=== PATIENT | male | born 1965 | race Caucasian/White ===

== ENCOUNTER 2019-05-31 06:07 | Inpatient (IN) ==
--- NOTE | 2019-05-14 10:38 | PAT Medication Instructions ---
Medication Instructions Date of Service May 14, 2019 Home Medications amlodipine [Norvasc] 5 mg PO HS cholecalciferol (vitamin D3) [Vitamin D3] 2,000 unit PO HS gabapentin [Neurontin] 600 mg PO HS insulin aspart U-100 [Novolog Flexpen U-100 Insulin] 1 unit SUBCUT AC insulin glargine [Lantus Solostar U-100 Insulin] 28 unit SUBCUT BID liraglutide [Victoza 2-Gurvinder] 1.8 mg SUBCUT QAM magnesium oxide 400 mg PO HS metformin 1,000 mg PO QAM metoprolol succinate 50 mg PO HS potassium gluconate 595 mg PO PM rosuvastatin [Crestor] 20 mg PO HS valsartan [Diovan] 80 mg PO HS DO NOT take the morning of surgery insulin aspart U-100 [Novolog Flexpen U-100 Insulin] 1 unit SUBCUT AC metformin 1,000 mg PO QAM Take morning of surgery With a small sip of water, OTHERWISE NOTHING TO EAT OR DRINK AFTER MIDNIGHT: liraglutide [Victoza 2-Gurvinder] 1.8 mg SUBCUT QAM Take evening before surgery amlodipine [Norvasc] 5 mg PO HS cholecalciferol (vitamin D3) [Vitamin D3] 2,000 unit PO HS gabapentin [Neurontin] 600 mg PO HS insulin aspart U-100 [Novolog Flexpen U-100 Insulin] 1 unit SUBCUT AC insulin glargine [Lantus Solostar U-100 Insulin] 28 unit SUBCUT BID magnesium oxide 400 mg PO HS metoprolol succinate 50 mg PO HS potassium gluconate 595 mg PO PM rosuvastatin [Crestor] 20 mg PO HS valsartan [Diovan] 80 mg PO HS Insulin Dependent Diabetic Patients * Test your blood sugar the morning of surgery * If Blood Sugar is GREATER THAN 150, take HALF of your regular dose of: insulin glargine [Lantus Solostar U-100 Insulin] 14 units * If Blood Sugar is LESS THAN 150, DO NOT TAKE ANY: insulin glargine [Lantus Solostar U-100 Insulin] * Other Notes If you have any questions please call us at [phone] or [phone] or [phone] or [phone]
--- NOTE | 2019-05-17 09:10 | Anesthesiology Consultation ---
Date of Service May 17, 2019 Assessment & Plan (1) Encounter for pre-operative examination: - PCP: 05/10/19: "He is cleared medically for surgery" - Check BSG AM DOS Chart Review Chart Review: Pending: Refer to Additional Notes / Consult section (pending preop testing (labs, CXR)) and Patient seen in Pre Admission Testing Teaching & Discussion Pre-Anesthesia Teaching/Discussion Notes: Instructed NPO after midnight before surgery,except medications with 15 cc of water. Medication instructions provided according to the PAT guidelines. History Surgery Operation Date: 05/31/19 10:25 Proposed Procedures p L2-L5 Decompression and Fusion with Spinal Cord Monitoring - Andrew Mariano DO Height/Weight Height: 6 ft Weight: 133.6 kg Allergies Allergy/AdvReac Type Severity Reaction Status Date / Time lisinopril AdvReac Mild Cough Verified 05/13/19 15:04 Medications Home Medications Medication Instructions Recorded Confirmed Last Taken amlodipine [Norvasc] 5 mg PO HS 05/13/19 05/13/19 Unknown cholecalciferol (vitamin D3) 2,000 unit PO HS 05/13/19 05/13/19 Unknown [Vitamin D3] gabapentin [Neurontin] 600 mg PO HS 05/13/19 05/13/19 Unknown insulin aspart U-100 [Novolog 1 unit SUBCUT AC 05/13/19 05/13/19 Unknown Flexpen U-100 Insulin] insulin glargine [Lantus Solostar 28 unit SUBCUT BID 05/13/19 05/13/19 Unknown U-100 Insulin] liraglutide [Victoza 2-Gurvinder] 1.8 mg SUBCUT QAM 05/13/19 05/13/19 Unknown magnesium oxide 400 mg PO HS 05/13/19 05/13/19 Unknown metformin 1,000 mg PO QAM 05/13/19 05/13/19 Unknown metoprolol succinate 50 mg PO HS 05/13/19 05/13/19 Unknown potassium gluconate 595 mg PO PM 05/13/19 05/13/19 Unknown rosuvastatin [Crestor] 20 mg PO HS 05/13/19 05/13/19 Unknown valsartan [Diovan] 80 mg PO HS 05/13/19 05/13/19 Unknown Past Medical History Medical History Chronic back pain Diabetes mellitus, type 2 IDDM Hyperlipidemia Hypertension Obesity Osteoarthritis Sleep apnea BIPAP Exercise / Class Metabolic Activity III < 4 Walking/Shop/Light housework Past Surgical History Surgical History History of arthroscopy of both shoulders Hx of arthroscopy of right knee Hx of colonoscopy Hx of wisdom tooth extraction Past Anesthesia History No Hx of Anesthesia Complications and No Family Hx of Anesthesia Complications History of PONV No Hx of PONV and No Hx of Motion Sickness Social History Smoking Status: Never smoker Do You Dip or Chew Tobacco: Yes (1 CAN/DAY- ADVISED NPO ) Hx Alcohol Use: Yes Alcohol type: beer alcohol intake frequency: a few times a month Hx Substance Use: No substance use type: does not use Review of Systems Patient denies chest pain, shortness of breath, cough, wheezing, palpitations. Physical Exam Vital Signs VITALS BP 113/71 P 69 TEMP 98.0 SP02 95%RA RESP 16 PHYSICAL Full neck and c-spine range of motion. Full TMJ range of motion. TMD 4 finger breaths Mallampati Score 3 Dentition: missing side Lungs: clear throughout to auscultation Cardiac: regular rate and rhythm, no murmurs noted Spine: normal Carotid arteries: negative bruit Extremities: no edema Trimmed simons Testing Electrocardiogram Date: 05/10/19 SR at 76bpm. First degree AVB.
--- NOTE | 2019-05-17 10:07 | XRay Report ---
XR chest Pre-admission PA/Lat HISTORY: 53 years-old Male pat preoperative exam. No acute chest complaints COMPARISON: None available TECHNIQUE: PA and lateral views of the chest FINDINGS: Cardiomediastinal and hilar silhouettes are within normal limits. No pneumothorax, pleural effusion, focal airspace consolidation or overt pulmonary edema. Degenerative changes of the shoulders and spin e. IMPRESSION: No acute process. The above report was generated using voice recognition software. It may contain grammatical, syntax o r spelling errors. Electronically signed by: Domo Dumont M.D. 05/17/2019 10:06 AM
[2019-05-17 11:17] LABS: Appearance Urine Clear (Clear); Bilirubin Urine Negative (Negative); Blood Urine Negative (Negative); Color Urine Yellow; Glucose Urine UA 3+ (Negative); Ketones Urine Trace (Negative); Leukocyte Esterase Urine Negative (Negative); Nitrite Urine Negative (Negative); Protein Urine Negative (Negative); Specific Gravity Urine 1.026 (1.000-1.030); Urobilinogen Urine Negative (Negative); pH Urine 5.5 (4.5-7.5)
[2019-05-17 11:19] LABS: Basophils # (auto) 0.03 K/uL (0-0.2); Basophils % (auto) 0.4 %; Eosinophils # (auto) 0.17 K/uL (0-0.5); Eosinophils % (auto) 2.5 %; Hematocrit (blood only) 45.2 % (42-52); Hemoglobin 15.8 g/dL (14.0-18.0); Immature Granulocytes # (auto) 0.01 K/uL (0.00-0.02); Immature Granulocytes % (auto) 0.1 %; Lymphocytes # (auto) 2.36 K/uL (1.2-3.4); Lymphocytes % (auto) 34.1 %; Mean Corpuscular Hemoglobin 31.3 pg (25-34); Mean Corpuscular Volume 89.5 fL (80-100); Monocytes # (auto) 0.55 K/uL (0.11-0.59); Monocytes % (auto) 7.9 %; Platelet Count 158 K/uL (130-400); RDW Coefficient of Variation 12.5 % (11.5-14.5); RDW Standard Deviation 40.4 fL (36.4-46.3); Red Blood Count 5.05 M/uL (4.7-6.1); White Blood Count 6.92 K/uL (4.8-10.8)
[2019-05-17 11:28] LABS: Calcium 8.6 mg/dl (8.5-10.1); Creatinine Clr Calc Pharmacy 124.6 ml/min; Est GFR (African American) 102.9; Est GFR (Non-African American) 88.8; Potassium 4.4 mmol/L (3.5-5.1)
[2019-05-17 11:34] LABS: Partial Thromboplastin Ratio 0.9; Partial Thromboplastin Time 25.6 Seconds (21.0-31.0); Prothrombin Time 10.5 Seconds (9.0-12.0)
[2019-05-17 11:38] LABS: Estimated Average Glucose 197 mg/dl; Hemoglobin A1C 8.5 % (4.5-5.6)
[~2019-05-31 06:07] MED LIST: ACETAMINOPHEN 500 MG TAB PO SCH; CEFAZOLIN 3000MG 72.5 ML IV SCH; CeleBREX 200 MG CAP PO SCH; GABAPENTIN 900 MG DOSE PO SCH; LR 15ML/HR IV SCH
[2019-05-31] MEDS ORDERED: ePHEDrine sulfate 50 MG/ML AMP IV PRN (06:45)
[2019-05-31] MEDS ORDERED: ATROPINE SULFATE 0.1 MG/ML 10ML SYR IV PRN (06:45)
[2019-05-31] MEDS ORDERED: ONDANSETRON INJ 2 MG/ML 2 ML VIAL IV PRN ×2 (06:45→12:10)
[2019-05-31] MEDS ORDERED: MoRPHine SULFATE 10 MG/ML CARP/VIAL IV PRN (06:45)
[2019-05-31] MEDS ORDERED: fentaNYL citrate 100 MCG/2 ML VIAL IV PRN (06:45)
[2019-05-31] MEDS ORDERED: BUPIVACAINE/EPINEPHRINE 0.25% 1:200,000 30 ML VIAL ONE (07:07)
[2019-05-31] MEDS ORDERED: BACITRACIN INJ 50,000 UNIT VIAL ONE (07:07)
[2019-05-31] MEDS ORDERED: PROPOFOL IV EMULSION 10 MG/ML 20 ML VIAL IV ONE (07:18)
[2019-05-31] MEDS ORDERED: LIDOCAINE HCL 2% 2 ML VIAL/AMP(20MG/ML) INFIL ONE (07:18)
[2019-05-31] MEDS ORDERED: DEXAMETHASONE SOD INJ 4 MG/ML VIAL ONE (07:18)
[2019-05-31] MEDS ORDERED: GLYCOPYRROLATE 0.2 MG/ML VIAL ONE (07:18)
[2019-05-31] MEDS ORDERED: NEOSTIGMINE METHYLSULFATE 1 MG/ML 10ML VIAL ONE (07:18)
[2019-05-31] MEDS ORDERED: ONDANSETRON INJ 2 MG/ML 2 ML VIAL ONE (07:18)
[2019-05-31] MEDS ORDERED: MIDAZOLAM HCL 1 MG/ML 2ML VIAL ONE (07:19)
[2019-05-31] MEDS ORDERED: HYDROmorphone INJ 2 MG/ML SYR/VIAL ONE (07:19)
[2019-05-31] MEDS ORDERED: fentaNYL citrate 100 MCG/2 ML VIAL ONE (07:19)
--- NOTE | 2019-05-31 07:30 | History & Physical Bridge Note ---
Date of Service May 31, 2019 History & Physical Bridge Note I have examined the patient, reviewed the History & Physical and in the interval since the performance of the History & Physical I have noted the following changes of clinical significance: no changes noted
--- NOTE | 2019-05-31 07:31 | History & Physical Report ---
Date of Service May 31, 2019 Assessment & Plan (1) Neurogenic claudication due to lumbar spinal stenosis: Decompression fusion L2-L5 Present on Admission?: Yes History of Present Illness Chief Complaint: Back and leg pain Primary Care Provider: Ash Perez This is a 53-year-old male presents with chronic persistent back and leg pain after failing extensive course of nonoperative care is here for surgical intervention. Allergies Allergy/AdvReac Type Severity Reaction Status Date / Time lisinopril AdvReac Mild Cough Verified 05/31/19 06:29 Home Medications Home Medications Medication Instructions Recorded Confirmed Type amlodipine [Norvasc] 5 mg PO HS 05/13/19 05/31/19 History cholecalciferol (vitamin D3) 2,000 unit PO HS 05/13/19 05/31/19 History [Vitamin D3] gabapentin [Neurontin] 600 mg PO HS 05/13/19 05/31/19 History insulin aspart U-100 [Novolog 1 unit SUBCUT AC 05/13/19 05/31/19 History Flexpen U-100 Insulin] insulin glargine [Lantus Solostar 28 unit SUBCUT BID 05/13/19 05/31/19 History U-100 Insulin] liraglutide [Victoza 2-Gurvinder] 1.8 mg SUBCUT QAM 05/13/19 05/31/19 History magnesium oxide 400 mg PO HS 05/13/19 05/31/19 History metformin 1,000 mg PO HS 05/13/19 05/31/19 History metoprolol succinate 50 mg PO HS 05/13/19 05/31/19 History potassium gluconate 595 mg PO PM 05/13/19 05/31/19 History rosuvastatin [Crestor] 20 mg PO HS 05/13/19 05/31/19 History valsartan [Diovan] 80 mg PO HS 05/13/19 05/31/19 History Past Med/Surg History Medical History Chronic back pain Diabetes mellitus, type 2 IDDM Hyperlipidemia Hypertension Obesity Osteoarthritis Sleep apnea BIPAP Surgical History History of arthroscopy of both shoulders Hx of arthroscopy of right knee Hx of colonoscopy Hx of wisdom tooth extraction Social History Preferred Language: Martiniquais Communication Ability: Effective Billet Recorder Required: No Beliefs That Will Affect Care: None Current Living Situation: Spouse Other Information That Helps Us Care for You: No Feels Safe at Home: Yes Safety Concerns: Feels Safe At This Time Smoking Status: Never smoker Do You Dip or Chew Tobacco: Yes (1 CAN/DAY- ADVISED NPO ) ; Second Hand Exposure: No ; Tobacco Cessation Education Requested by Patient: No Hx Alcohol Use: Yes Alcohol type: beer Hx Substance Use: No Physical Exam Physical Exam: Patient is alert and oriented neurologically intact. Results & Data Vital Signs (Past 12 Hours) Vital Signs Temp Pulse Resp BP Pulse Ox 05/31/19 06:38 36.6 C 59 L 20 107/71 95
[2019-05-31] MEDS ORDERED: ROCURONIUM BROMIDE 10 MG/ML 5 ML VIAL ONE (08:22)
[2019-05-31] MEDS ORDERED: SUCCINYLCHOLINE CHLORIDE 20 MG/ML 10 ML VIAL ONE (08:22)
[2019-05-31] MEDS ORDERED: THROMBIN FOR SOLN 20000 UNIT KIT ONE (08:37)
[2019-05-31] MEDS ORDERED: FLOSEAL HEMOSTATIC MATRIX 10ML TOP ONE (10:35)
--- NOTE | 2019-05-31 10:47 | Operative Report ---
Post Operative Report Pre & Post Diagnosis Operation Date: 05/31/19 07:45 Pre-Op Diagnosis: LUMBAR SPINAL STENOSIS W/NEUROGENIC CLAUDICATION Post-Op Diagnosis: LUMBAR SPINAL STENOSIS W/NEUROGENIC CLAUDICATION I identified the patient and participated in the time-out.: Yes Procedure Operation Date: 05/31/19 07:45 Actual Procedures #1 lumbar decompression with bilateral medial facetectomies foraminotomies L2-3 L3-4 L4-5. #2 posterior spinal fusion L2-3 L3-4 L4-5.. #3 placement posterior segmental instrumentation L2-3 L3-4 L4-5.. #4 interbody fusion L3-4 L4-5.. #5 placement titanium interbody cage 10 x 26 mm at L3-4 and 11 x 26 mm at L4-5. #6 placement of locally harvested morselized autograft in the posterior lateral gutters. #7 placement infuse collagen sponge combined master graft in the posterior lateral gutters and ostial amp and interbody space. Surgeon Andrew Mariano, DO Cardiac Cath Lab Technologist Georgette Iniguez Estimated Blood Loss 600 Findings See Below The patient is 6 feet tall weighing over 133 kg with a BMI of 39. The patient's body habitus combined with an EBL of over 600 cc created significant technical difficulty. He did require our deepest retractors and longus instruments in order to perform his procedure. This added at least 50% increase in operative time. Specimens None Indications This is a 53-year-old male who presents with above-mentioned diagnosis after failing extensive course of nonoperative care elected to undergo the above- mentioned procedure. Description of Procedure Patient was met with identified and informed consent obtained. Patient was then taken to the operative suite underwent intubation placed in the prone position the Chucho table on top of the Angel frame. All bony prominences well-padded eyes inspected to ensure no external pressure placed upon the peer at this point the lumbar spine was prepped and draped in normal sterile fashion. Sharp dissection with the assistance of Bovie cautery was performed down to and exposing the lamina and transverse processes of L3-L4-L5 bilaterally. From a caudal cephalad fashion complete laminectomy of L for L3 and L2 was performed including bilateral medial facetectomies foraminotomies addressing severe stenosis. Pedicle screws were then placed in L2 L3-L4-L5 bilateral with assistance of fluoroscopy and the probably size gricelda placed. By way of a transforaminal approach on the left complete discectomy fill for 5 was performed endplates curetted to subcortical bleeding bone and a 11 x 26 mm titanium cage filled with ostium bone graft tapped in position. Then proceeded to L3-[address] of a transforaminal approach and left complete discectomy performed endplates curetted to subcortical being bone and a 10 x 26 mm titanium cage filled with ostium bone graft tapped in position. The rods were then locked in final position bilaterally. The transverse processes of L2 L3-L4-L5 bur to subcortical bleeding bone. Infuse collagen sponge master graft and local autograft was placed in the posterior lateral gutters. 15 round ELIAS drain ins erted. Incision was then closed with 1 Vicryl in the fascia 2-0 Vicryl subcutaneous and 4 Monocryl for final skin closure. Steri-Strip sterile dressing was placed. Patient awakened taken to PACU stable condition. Please note Georgette Iniguez present at the entire procedure involved in patient positioning complex portions of the surgery and final skin closure. Lastly spinal cord monitoring was utilized that the procedure no changes noted. I attest to the content of the Intraoperative Record and any orders documented therein. Any exceptions are noted below.
--- NOTE | 2019-05-31 11:26 | Fluoroscopy Report ---
FL lumbar spine 2-3V HISTORY: 53 years-old Male L2-3 DECOMPRESSION AND FUSION chronic low back pain COMPARISON: None available TECHNIQUE: 2 spot fluoroscopic images of the lumbar spine were obtained utilizing 31.7 seconds fluoro scopy time FINDINGS: Posterior interbody gricelda and screw fusion hardware at what appears to be the L2-L5 levels with discect jessie changes at L3-L4 and L4-L5. Exact numbering is not definitive based on magnification of the image s. Multilevel spondylitic spurring. Alignment appears satisfactory. The hardware appears intact. No a cute fracture identified. IMPRESSION: Fluoroscopic assistance as above. Please see operative report for further details. The above report was generated using voice recognition software. It may contain grammatical, syntax o r spelling errors. Electronically signed by: Domo Dumont M.D. 05/31/2019 11:25 AM
--- NOTE | 2019-05-31 11:52 | Anesthesiology Progress Note ---
Date of Service May 31, 2019 Anesthesia Post Procedure Vital Signs Vital Signs: Temp Pulse Pulse Resp BP Pulse Ox 05/31/19 11:40 98.8 F 72 14 114/69 100 05/31/19 11:30 62 14 109/59 L 100 05/31/19 11:20 70 16 114/78 97 05/31/19 11:10 70 16 118/68 97 05/31/19 11:00 98.1 F 76 16 117/78 98 05/31/19 06:38 97.9 F 59 L 20 107/71 95 Pain Intensity Left Foot: Pain Intensity: 3 Transfer of Care Handoff Completed per policy Notes Mental Status: alert / awake / arousable and participated in evaluation Patient Amnestic to Procedure: Yes Nausea / Vomiting: adequately controlled Pain: adequately controlled Airway Patency, RR, SpO2: stable & adequate BP & HR: stable & adequate Hydration State: stable & adequate Anesthetic Complications: no major complications apparent and Pt Satisfied with anesthetic care
[2019-05-31] MEDS ORDERED: ACETAMINOPHEN 1,000 MG/100 ML VIAL IV PRN (12:10)
[2019-05-31] MEDS ORDERED: ACETAMINOPHEN 500 MG TAB PO PRN (12:10)
[2019-05-31] MEDS ORDERED: HYDROmorphone INJ 1 MG/ML SYRINGE IV PRN (12:10)
[2019-05-31] MEDS ORDERED: METOCLOPRAMIDE HCL INJ 5 MG/ML 2 ML VIAL IV PRN (12:10)
[2019-05-31] MEDS ORDERED: LORazepam 0.5 MG/1 ML VIAL IV PRN (12:10)
[2019-05-31] MEDS ORDERED: SOD PHOSPHATE/SOD BIPHOSPHATE ENEMA 132 ML BTL PR PRN (12:10)
[2019-05-31] MEDS ORDERED: DO NOT ADMINISTER PNEUMOCOCCAL VACCINE PRN (12:10)
[2019-05-31] MEDS ORDERED: LORazepam 0.5 MG TAB PO PRN (12:10)
[2019-05-31] MEDS ORDERED: TRAMADOL HCL 50 MG TABLET PO PRN (12:10)
[2019-05-31] MEDS ORDERED: ONDANSETRON 4 MG OD TAB PO PRN (12:10)
[2019-05-31] MEDS ORDERED: HYDROmorphone INJ 0.5 MG/0.5 ML SYR IV PRN (12:10)
[2019-05-31] MEDS ORDERED: DO NOT ADMINISTER FLU VACCINE PRN (12:10)
[2019-05-31] MEDS ORDERED: bisacodyL 10 MG SUPP PR PRN (12:10)
[2019-05-31] MEDS ORDERED: PROMETHAZINE HCL 12.5 MG in SODIUM CHLORIDE 0.9% 50 ML IV PRN (12:10)
[2019-05-31] MEDS ORDERED: MAGNESIUM HYDROXIDE SUSP 30 ML UDC PO PRN (12:10)
[2019-05-31] MEDS ORDERED: ALUMINUM/MAGNESIUM SUSP 30 ML UDC PO PRN (12:10)
[2019-05-31] MEDS ORDERED: FAMOTIDINE 20 MG TAB PO PRN (12:10)
[2019-05-31] MEDS ORDERED: NALOXONE HCL 0.4 MG/1 ML VIAL/CARP IV PRN (12:10)
[2019-05-31] MEDS: SODIUM CHLORIDE 0.9% 1000ML 1,000 ML IV SCH ×2 (12:30→19:09)
[2019-05-31] MEDS ORDERED: GLUCAGON FOR INJ 1 MG VIAL SQ PRN (12:57)
[2019-05-31] MEDS ORDERED: DEXTROSE 50% 50 ML SYRINGE IV PRN (12:57)
[2019-05-31] MEDS ORDERED: GLUCOSE 10 TABS/TUBE PO PRN (12:57)
[2019-05-31] MEDS ORDERED: CARBOHYDRATES FOR HYPOGLYCEMIA PO PRN (12:57)
[2019-05-31] MEDS ORDERED: GLUCOSE 40% GEL 15 GM TUBE PO PRN (12:57)
--- NOTE | 2019-05-31 13:03 | Hospitalist Consultation ---
Date of Consultation May 31, 2019 Assessment & Plan (1) Neurogenic claudication due to lumbar spinal stenosis: s/p L2-L5 decompression/fusion with Dr. Mariano on 05/31 As per ortho Pre-op Hb 15.8 (2) Hypokalemia: continue home meds (3) Diabetes mellitus, type 2: continue home meds SSI A1c 8.5 (4) Hyperlipidemia: continue home meds (5) Hypertension: continue home meds (6) Sleep apnea: Home CPAP (7) DVT prophylaxis: As per ortho History of Present Illness Attending Physician: Andrew Mariano DO History of Present Illness 53 y/o M who was admitted on 05/31 s/p L2-[address] Mariano. Pt is doing well post-op. Tolerating water without issue, but is awaiting first post-op meal. Pt denies fever, SOB, chest pain, abd pain, n/v/c/d, LE pain or swelling. Allergies Allergy/AdvReac Type Severity Reaction Status Date / Time lisinopril AdvReac Mild Cough Verified 05/31/19 06:29 Home Medications Home Medications Medication Instructions Recorded Confirmed Type amlodipine [Norvasc] 5 mg PO HS 05/13/19 05/31/19 History cholecalciferol (vitamin D3) 2,000 unit PO HS 05/13/19 05/31/19 History [Vitamin D3] gabapentin [Neurontin] 600 mg PO HS 05/13/19 05/31/19 History insulin aspart U-100 [Novolog 1 unit SUBCUT AC 05/13/19 05/31/19 History Flexpen U-100 Insulin] insulin glargine [Lantus Solostar 28 unit SUBCUT BID 05/13/19 05/31/19 History U-100 Insulin] liraglutide [Victoza 2-Gurvinder] 1.8 mg SUBCUT QAM 05/13/19 05/31/19 History magnesium oxide 400 mg PO HS 05/13/19 05/31/19 History metformin 1,000 mg PO HS 05/13/19 05/31/19 History metoprolol succinate 50 mg PO HS 05/13/19 05/31/19 History potassium gluconate 595 mg PO PM 05/13/19 05/31/19 History rosuvastatin [Crestor] 20 mg PO HS 05/13/19 05/31/19 History valsartan [Diovan] 80 mg PO HS 05/13/19 05/31/19 History Patient History Medical History Chronic back pain Diabetes mellitus, type 2 IDDM Hyperlipidemia Hypertension Obesity Osteoarthritis Sleep apnea BIPAP Surgical History History of arthroscopy of both shoulders Hx of arthroscopy of right knee Hx of colonoscopy Hx of wisdom tooth extraction Social History (Updated 05/31/19 @ 13:01 by Clair Soto DO) Preferred Language: Czech Communication Ability: Effective I&C Tech Required: No Beliefs That Will Affect Care: None Current Living Situation: Spouse Other Information That Helps Us Care for You: No Feels Safe at Home: Yes Safety Concerns: Feels Safe At This Time Smoking Status: Never smoker Do You Dip or Chew Tobacco: Yes (1 CAN/DAY- ADVISED NPO ) ; Second Hand Exposure: No ; Tobacco Cessation Education Requested by Patient: No Hx Alcohol Use: Yes Alcohol type: beer Alcohol Intake Frequency Comment: once a month Hx Substance Use: No Review of Systems Review of Systems: Pertinent positives and negatives reviewed in HPI--all others negative Physical Exam Constitutional: WD/WN, vitals as above Eyes: normal visual alegre by confrontation and + anicteric sclerae Neck: normal visual inspection and trachea midline Respiratory: normal respiratory effort, lungs clear to auscultation Cardiovascular: Rate/Rhythm: regular rate and regular rhythm Gastrointestinal (Abdomen): Inspection/Auscultation: abdomen not distended Percussion/Palpation: abdomen soft; abdomen nontender Musculoskeletal: Head/Neck/Chest: normocephalic and head atraumatic negative for edema, peripheral pulses intact Skin: no rashes, warm and dry Neurologic: awake; not confused Speech / Cognition: normal speech Psychiatric: A+Ox3, euthymic affect Results & Data Vital Signs (Past 12 Hours) Vital Signs Temp Pulse Pulse Resp BP Pulse Ox 05/31/19 12:40 68 18 112/69 92 05/31/19 12:10 36.7 C 74 16 108/69 99 05/31/19 11:40 37.1 C 72 14 114/69 100 05/31/19 11:30 62 14 109/59 L 100 05/31/19 11:20 70 16 114/78 97 05/31/19 11:10 70 16 118/68 97 05/31/19 11:00 36.7 C 76 16 117/78 98 05/31/19 06:38 36.6 C 59 L 20 107/71 95 Diagnostic Findings CXR: neg for acute PG Care Time/CCT Total # of Minutes Spent Total Time Spent with Patient: Total time spent is greater than 50% in coordination of care (as documented) at patient's floor/unit and/or counseling patient:
[2019-05-31] MEDS ORDERED: INSULIN ASPART 100 UNITS/ML 3 ML PEN SC ONE (13:30)
[2019-05-31] MEDS: KETOROLAC 30 MG/ML VIAL IV SCH ×2 (13:49→20:34)
[2019-05-31] MEDS: VICTOZA - ORDER AWAITING ACTION SCH (17:15)
[2019-05-31] MEDS: CEFAZOLIN 2000MG 2,000 MG/15 ML SYR IV SCH (17:15)
[2019-05-31] MEDS: INSULIN ASPART 100 UNITS/ML 3 ML PEN SC SCH ×2 (17:38→21:22)
[2019-05-31] MEDS: AMLODIPINE BESYLATE 5 MG TAB PO SCH (20:34)
[2019-05-31] MEDS: GABAPENTIN 600 MG TAB PO SCH (20:34)
[2019-05-31] MEDS: ROSUVASTATIN CALCIUM 20 MG TAB PO SCH (20:34)
[2019-05-31] MEDS: MAGNESIUM OXIDE 400 MG TAB PO SCH (20:34)
[2019-05-31] MEDS: VALSARTAN 80 MG TAB PO SCH (20:34)
[2019-05-31] MEDS: METOPROLOL SUCC 50MG EXT REL TAB PO SCH (20:35)
[2019-05-31] MEDS: CHOLECALCIFEROL 1,000 UNITS 25 MCG TAB PO SCH (20:35)
[2019-05-31] MEDS: DOCUSATE SODIUM/SENNA 50/8.6MG TAB PO SCH (20:37)
[2019-05-31] MEDS ORDERED: NON-FORMULARY MEDICATION (Potassium Gluconate 595 MG) PO SCH (21:00)
[2019-05-31] MEDS: INSULIN GLARGINE SOLOSTAR 100 UNITS/ML 3 ML PEN SC SCH (21:22)
[2019-06-01] MEDS: CEFAZOLIN 2000MG 2,000 MG/15 ML SYR IV SCH (00:18)
[2019-06-01] MEDS: VICTOZA - ORDER AWAITING ACTION SCH ×2 (00:18→08:40)
[2019-06-01] MEDS: INSULIN ASPART 100 UNITS/ML 3 ML PEN SC SCH ×6 (00:33→21:36)
[2019-06-01] MEDS: SODIUM CHLORIDE 0.9% 1000ML 1,000 ML IV SCH (01:05)
[2019-06-01] MEDS: KETOROLAC 30 MG/ML VIAL IV SCH ×2 (01:05→07:18)
[2019-06-01] MEDS: POLYETHYLENE (MIRALAX) 17 GM PACK PO SCH ×3 (05:42→17:44)
[2019-06-01 06:16] LABS: Basophils # (auto) 0.01 K/uL (0-0.2); Basophils % (auto) 0.1 %; Eosinophils # (auto) 0.03 K/uL (0-0.5); Eosinophils % (auto) 0.3 %; Hematocrit (blood only) 32.1 % (42-52); Hemoglobin 11.2 g/dL (14.0-18.0); Immature Granulocytes # (auto) 0.01 K/uL (0.00-0.02); Immature Granulocytes % (auto) 0.1 %; Lymphocytes # (auto) 1.85 K/uL (1.2-3.4); Lymphocytes % (auto) 15.7 %; Mean Corpuscular Hemoglobin 31.3 pg (25-34); Mean Corpuscular Hgb Conc 34.9 g/dL (32-36); Mean Corpuscular Volume 89.7 fL (80-100); Mean Platelet Volume 9.3 fL (7.4-10.4); Monocytes % (auto) 10.2 %; Neutrophils # (auto) 8.67 K/uL (1.4-6.5); Neutrophils % (auto) 73.6 %; Platelet Count 126 K/uL (130-400); RDW Coefficient of Variation 12.3 % (11.5-14.5); RDW Standard Deviation 40.4 fL (36.4-46.3); Red Blood Count 3.58 M/uL (4.7-6.1); White Blood Count 11.77 K/uL (4.8-10.8)
[2019-06-01 06:53] LABS: Creatinine Clr Calc Pharmacy 125.6 ml/min; Est GFR (African American) 105.5
--- NOTE | 2019-06-01 08:16 | Anesthesiology Progress Note ---
Date of Service June 01, 2019 Anesthesia Post Procedure Vital Signs Vital Signs: Temp Pulse Pulse Pulse Resp BP BP 06/01/19 06:54 36.8 C 65 18 100/59 L 06/01/19 03:57 36.4 C L 79 18 105/62 05/31/19 23:34 36.7 C 68 17 100/57 L 05/31/19 20:33 80 110/69 05/31/19 19:01 37 C 65 16 113/69 05/31/19 15:11 36.5 C 69 16 121/69 05/31/19 14:06 79 18 122/70 05/31/19 13:06 36.4 C L 73 20 112/73 05/31/19 12:40 68 18 112/69 05/31/19 12:10 36.7 C 74 16 108/69 05/31/19 11:40 37.1 C 72 14 114/69 05/31/19 11:30 62 14 109/59 L 05/31/19 11:20 70 16 114/78 05/31/19 11:10 70 16 118/68 05/31/19 11:00 36.7 C 76 16 117/78 Pulse Ox 06/01/19 06:54 96 06/01/19 03:57 96 05/31/19 23:34 90 05/31/19 20:33 05/31/19 19:01 93 05/31/19 15:11 94 05/31/19 14:06 96 05/31/19 13:06 96 05/31/19 12:40 92 05/31/19 12:10 99 05/31/19 11:40 100 05/31/19 11:30 100 05/31/19 11:20 97 05/31/19 11:10 97 05/31/19 11:00 98 Pain Intensity Left Foot: Pain Intensity: 3 Notes Mental Status: alert / awake / arousable and participated in evaluation Nausea / Vomiting: adequately controlled Pain: adequately controlled Airway Patency, RR, SpO2: stable & adequate BP & HR: stable & adequate Hydration State: stable & adequate Anesthetic Complications: no major complications apparent
[2019-06-01] MEDS: VICTOZA 18 MG/3 ML SC SCH (08:43)
[2019-06-01] MEDS: INSULIN GLARGINE SOLOSTAR 100 UNITS/ML 3 ML PEN SC SCH ×2 (08:46→21:37)
[2019-06-01] MEDS ORDERED: PHARMACY GLYCEMIC MGMT CONSULT PRN (08:57)
--- NOTE | 2019-06-01 10:02 | Pharmacy Report ---
Glycemic Control Consultation - Date of Service June 01, 2019 - Scope Scope: Glycemic Pharmacist consulted by Kimberly Alvarez PA-C on 06/01/19 for glycemic control and to write orders per [facility] inpatient glycemic control protocol - Objective Weight: 130.499 kg Accuchecks BSG (last 24hrs): 05/31/19 05/31/19 05/31/19 10:24 11:03 12:33 Glucose POC Glucose 275 H 256 H 291 H 05/31/19 05/31/19 05/31/19 17:17 17:19 20:45 Glucose POC Glucose 342 H* 327 H* 301 H* 05/31/19 06/01/19 06/01/19 20:47 00:17 04:04 Glucose POC Glucose 315 H* 267 H 212 H 06/01/19 06/01/19 06:03 07:57 Glucose 216 H POC Glucose 186 H Laboratory Data (last 24hrs): 06/01/19 06:03 Potassium 4.0 Carbon Dioxide 23 Anion Gap 8.0 Creatinine 0.95 Est Cr Clr Drug Dosing 125.6 HbA1c: Hemoglobin A1c 8.5 % (4.5-5.6) H 05/17/19 09:24 - Recent Pertinent Medications Outpatient Anti-diabetic Regimen: * Lantus 28 units SC BID * Novolog SSI * Victoza 1.8 mg SC daily * A1c = 8.5 % (05/17/19) The patient is currently receiving: * Basal insulin: Lantus 28 units every 12 hours * Correctional Insulin: Novolog Correction per scale ACHS Goal Range: Low 120 mg/dL - High 140 mg/dL Correction Factor: 15 mg/dL/unit * Prandial insulin: Per carb ratio of 1 unit per 5 grams CHO consumed * Victoza 1.8 mg SC daily Risk Factors for Insulin Resistance: * Steroids: Dexamethasone 8 mg IV x 1 perioperatively 05/31/19 * Recent Surgery: POD #1 s/p lumbar decompression/fusion * Diet: T2DM - Assessment & Plan Assessment & Plan: ASSESSMENT: * BC is a 53 year old male POD #1 s/p lumbar decompression and fusion * Relevant PMH includes type 2 diabetes, hypertension, hyperlipidemia, obesity, and obstructive sleep apnea * Pharmacy consulted on POD #1 (06/01) * BSGs yesterday ranging 267-327 mg/dL * Patient received 105 units of insulin (56 of which were basal) * Dexamethasone 8 mg IV x 1 given perioperatively * Patient provided home Victoza, which was initiated this morning PLAN FOR INPATIENT GLYCEMIC CONTROL: * Continue home Victoza 1.8 mg SC daily * Basal insulin * Lantus 28 units SQ given this morning * Lantus scale starting this evening: * -28 units if BSG 199 mg/dL or less * -33 units if BSG 200 mg/dL or above * Bolus insulin * NovoLog per scale ACHS or Q6hrs while NPO * Goal Range: Low 110 mg/dL - High 140 mg/dL * Correction Factor: 15 mg/dL/unit * Nutritional / Prandial insulin per carb ratio of 1 unit per 5 grams CHO consumed * Please note that the plan above was derived based on current level of insulin resistance and hospital stress. These recommendations are appropriate for inpatient admission only. Plan of care upon discharge will need to be reassessed to avoid potential outpatient hypo/hyperglycemia. Thank you.
--- NOTE | 2019-06-01 10:35 | Orthopedic Progress Note ---
Date of Service June 01, 2019 Assessment & Plan (1) Neurogenic claudication due to lumbar spinal stenosis: This time we will continue physical therapy monitor his ELIAS output anticipate discharge home later half this week. Present on Admission?: Yes Subjective Back pain is controlled leg symptoms markedly improved. Physical Exam Physical Exam: Patient is in the chair at the bedside. Is good strength testing. Appears comfortable. Results & Data Vital Signs (Past 12 Hours) Vital Signs Temp Pulse Resp BP Pulse Ox 06/01/19 06:54 36.8 C 65 18 100/59 L 96 06/01/19 03:57 36.4 C L 79 18 105/62 96 05/31/19 23:34 36.7 C 68 17 100/57 L 90
--- NOTE | 2019-06-01 12:21 | Hospitalist Progress Note ---
Date of Service June 01, 2019 Assessment & Plan (1) Neurogenic claudication due to lumbar spinal stenosis: - S/p L2-L5 decompression/fusion with Dr. Mariano on 05/31, POD#1. - Pain control per primary team; continue Gabapentin 600 mg qhs prescribed. - PT/OT evaluation for discharge planning. - Monitor H/H daily - below baseline as expected. (2) Diabetes mellitus, type 2: - Most recent A1C was 8.5. - Pharmacy consulted for glycemic management - BG has been elevated. (3) Hyperlipidemia: - Continue statin as prescribed. (4) Hypertension: - BP 100's this morning. - Continue Metoprolol 50 mg qhs; hold home Valsartan & Amlodipine due to hypotension this morning. (5) Sleep apnea: - Continue home CPAP qhs. (6) Hypokalemia: - Replace prn -- level was 4.0 this morning. (7) DVT prophylaxis: - Per ortho. Dispo: Med/surg; will continue to follow, please call with any questions. Subjective Pt. is doing well overall. Increased output/bleeding from drain overnight, monitor H/H closely. C/o "soreness" in back. Is passing gas, no BM yet. BP was slightly low this morning, SBP low 100's. Review of Systems Review of Systems: All systems reviewed & are unremarkable except as noted in HPI & below Constitutional: no fever, no chills, no fatigue, no weakness and no anorexia Respiratory: no cough, no dyspnea, no dyspnea on exertion and no wheezing Cardiovascular: no chest pain, no palpitations and no edema Gastrointestinal: + constipation; no abdominal pain and no nausea Genitourinary: no difficulty urinating Musculoskeletal: + back pain; no joint pain Integumentary: no non-healing lesions Physical Exam Physical Exam: General: Resting comfortably HEENT: NC/AT; PERRLA with EOMI; [place] conjunctiva, MMM. No erythema of posterior pharynx Neck: Supple and nontender Cardiac: RRR Lungs: CTA bilaterally Abdomen: Bowel normoactive X 4; Nontender to palpation Back: Drain with sanguinous output. Dressing in place, no discharge at site noted. Extremities: Warm. No edema present Neuro: No focal weakness Skin: No rash Results & Data Vital Signs (Past 12 Hours) Vital Signs Temp Pulse Pulse Resp BP Pulse Ox 06/01/19 10:45 36.6 C 65 16 108/64 95 06/01/19 06:54 36.8 C 65 18 100/59 L 96 06/01/19 03:57 36.4 C L 79 18 105/62 96 Laboratory Results 06/01/19 06/01/19 06/01/19 Range/Units 11:55 07:57 06:03 WBC (4.8-10.8) K/uL RBC (4.7-6.1) M/uL Hgb (14.0-18.0) g/dL Hct (42-52) % MCV (80-100) fL MCH (25-34) pg MCHC (32-36) g/dL RDW Std Deviation (36.4-46.3) fL RDW Coeff of Amarilys (11.5-14.5) % Plt Count (130-400) K/uL MPV (7.4-10.4) fL Immature Gran % (Auto) % Neut % (Auto) % Lymph % (Auto) % [place] % (Auto) % Eos % (Auto) % Baso % (Auto) % Immature Gran # (Auto) (0.00-0.02) K/uL Neut # (Auto) (1.4-6.5) K/uL Lymph # (Auto) (1.2-3.4) K/uL [place] # (Auto) (0.11-0.59) K/uL Eos # (Auto) (0-0.5) K/uL Baso # (Auto) (0-0.2) K/uL Sodium 136 (136-145) mmol/L Potassium 4.0 (3.5-5.1) mmol/L Chloride 105 (98-107) mmol/L Carbon Dioxide 23 (21-32) mmol/L Anion Gap 8.0 (3-11) BUN 17 (7-18) mg/dl Creatinine 0.95 (0.6-1.4) mg/dl Est Cr Clr Drug Dosing 125.6 ml/min Est GFR ( Amer) 105.5 Est GFR (Non-Af Amer) 91.0 BUN/Creatinine Ratio 18.0 (10-20) Glucose 216 H (70-99) mg/dl POC Glucose 213 H 186 H (70-99) Calcium 8.0 L (8.5-10.1) mg/dl 06/01/19 06/01/19 06/01/19 Range/Units 06:03 04:04 00:17 WBC 11.77 H (4.8-10.8) K/uL RBC 3.58 L (4.7-6.1) M/uL Hgb 11.2 L (14.0-18.0) g/dL Hct 32.1 L (42-52) % MCV 89.7 (80-100) fL MCH 31.3 (25-34) pg MCHC 34.9 (32-36) g/dL RDW Std Deviation 40.4 (36.4-46.3) fL RDW Coeff of Amarilys 12.3 (11.5-14.5) % Plt Count 126 L (130-400) K/uL MPV 9.3 (7.4-10.4) fL Immature Gran % (Auto) 0.1 % Neut % (Auto) 73.6 % Lymph % (Auto) 15.7 % [place] % (Auto) 10.2 % Eos % (Auto) 0.3 % Baso % (Auto) 0.1 % Immature Gran # (Auto) 0.01 (0.00-0.02) K/uL Neut # (Auto) 8.67 H (1.4-6.5) K/uL Lymph # (Auto) 1.85 (1.2-3.4) K/uL [place] # (Auto) 1.20 H (0.11-0.59) K/uL Eos # (Auto) 0.03 (0-0.5) K/uL Baso # (Auto) 0.01 (0-0.2) K/uL Sodium (136-145) mmol/L Potassium (3.5-5.1) mmol/L Chloride (98-107) mmol/L Carbon Dioxide (21-32) mmol/L Anion Gap (3-11) BUN (7-18) mg/dl Creatinine (0.6-1.4) mg/dl Est Cr Clr Drug Dosing ml/min Est GFR ( Amer) Est GFR (Non-Af Amer) BUN/Creatinine Ratio (10-20) Glucose (70-99) mg/dl POC Glucose 212 H 267 H (70-99) Calcium (8.5-10.1) mg/dl 05/31/19 05/31/19 05/31/19 Range/Units 20:47 20:45 17:19 WBC (4.8-10.8) K/uL RBC (4.7-6.1) M/uL Hgb (14.0-18.0) g/dL Hct (42-52) % MCV (80-100) fL MCH (25-34) pg MCHC (32-36) g/dL RDW Std Deviation (36.4-46.3) fL RDW Coeff of Amarilys (11.5-14.5) % Plt Count (130-400) K/uL MPV (7.4-10.4) fL Immature Gran % (Auto) % Neut % (Auto) % Lymph % (Auto) % [place] % (Auto) % Eos % (Auto) % Baso % (Auto) % Immature Gran # (Auto) (0.00-0.02) K/uL Neut # (Auto) (1.4-6.5) K/uL Lymph # (Auto) (1.2-3.4) K/uL [place] # (Auto) (0.11-0.59) K/uL Eos # (Auto) (0-0.5) K/uL Baso # (Auto) (0-0.2) K/uL Sodium (136-145) mmol/L Potassium (3.5-5.1) mmol/L Chloride (98-107) mmol/L Carbon Dioxide (21-32) mmol/L Anion Gap (3-11) BUN (7-18) mg/dl Creatinine (0.6-1.4) mg/dl Est Cr Clr Drug Dosing ml/min Est GFR ( Amer) Est GFR (Non-Af Amer) BUN/Creatinine Ratio (10-20) Glucose (70-99) mg/dl POC Glucose 315 H* 301 H* 327 H* (70-99) Calcium (8.5-10.1) mg/dl 05/31/19 05/31/19 Range/Units 17:17 12:33 WBC (4.8-10.8) K/uL RBC (4.7-6.1) M/uL Hgb (14.0-18.0) g/dL Hct (42-52) % MCV (80-100) fL MCH (25-34) pg MCHC (32-36) g/dL RDW Std Deviation (36.4-46.3) fL RDW Coeff of Amarilys (11.5-14.5) % Plt Count (130-400) K/uL MPV (7.4-10.4) fL Immature Gran % (Auto) % Neut % (Auto) % Lymph % (Auto) % [place] % (Auto) % Eos % (Auto) % Baso % (Auto) % Immature Gran # (Auto) (0.00-0.02) K/uL Neut # (Auto) (1.4-6.5) K/uL Lymph # (Auto) (1.2-3.4) K/uL [place] # (Auto) (0.11-0.59) K/uL Eos # (Auto) (0-0.5) K/uL Baso # (Auto) (0-0.2) K/uL Sodium (136-145) mmol/L Potassium (3.5-5.1) mmol/L Chloride (98-107) mmol/L Carbon Dioxide (21-32) mmol/L Anion Gap (3-11) BUN (7-18) mg/dl Creatinine (0.6-1.4) mg/dl Est Cr Clr Drug Dosing ml/min Est GFR ( Amer) Est GFR (Non-Af Amer) BUN/Creatinine Ratio (10-20) Glucose (70-99) mg/dl POC Glucose 342 H* 291 H (70-99) Calcium (8.5-10.1) mg/dl PG Care Time/CCT Total # of Minutes Spent Total Time Spent with Patient: Total time spent is greater than 50% in coordination of care (as documented) at patient's floor/unit and/or counseling patient:
[2019-06-01] MEDS: OXYCODONE HCL IR 5 MG TAB (IMMEDIATE RELEASE) PO PRN ×2 (14:47→20:02)
[2019-06-01] MEDS: MAGNESIUM OXIDE 400 MG TAB PO SCH (21:35)
[2019-06-01] MEDS: METOPROLOL SUCC 50MG EXT REL TAB PO SCH (21:35)
[2019-06-01] MEDS: DOCUSATE SODIUM/SENNA 50/8.6MG TAB PO SCH (21:35)
[2019-06-01] MEDS: ROSUVASTATIN CALCIUM 20 MG TAB PO SCH (21:35)
[2019-06-01] MEDS: GABAPENTIN 600 MG TAB PO SCH (21:36)
[2019-06-01] MEDS: CHOLECALCIFEROL 1,000 UNITS 25 MCG TAB PO SCH (21:36)
[2019-06-02] MEDS: INSULIN ASPART 100 UNITS/ML 3 ML PEN SC SCH ×6 (00:06→21:30)
[2019-06-02] MEDS: OXYCODONE HCL IR 5 MG TAB (IMMEDIATE RELEASE) PO PRN ×4 (00:10→19:33)
[2019-06-02] MEDS: POLYETHYLENE (MIRALAX) 17 GM PACK PO SCH ×4 (00:12→17:56)
[2019-06-02 05:43] LABS: Hematocrit (blood only) 31.8 % (42-52); Mean Corpuscular Hemoglobin 31.3 pg (25-34); Mean Corpuscular Hgb Conc 34.6 g/dL (32-36); Mean Corpuscular Volume 90.3 fL (80-100); Mean Platelet Volume 9.6 fL (7.4-10.4); Platelet Count 121 K/uL (130-400); RDW Coefficient of Variation 12.5 % (11.5-14.5); RDW Standard Deviation 40.9 fL (36.4-46.3); Red Blood Count 3.52 M/uL (4.7-6.1); White Blood Count 9.61 K/uL (4.8-10.8)
[2019-06-02 06:14] LABS: Calcium 7.8 mg/dl (8.5-10.1); Creatinine Clr Calc Pharmacy 149.2 ml/min; Est GFR (African American) 118.2; Potassium 3.9 mmol/L (3.5-5.1)
[2019-06-02] MEDS: VICTOZA 18 MG/3 ML SC SCH (08:37)
[2019-06-02] MEDS: INSULIN GLARGINE SOLOSTAR 100 UNITS/ML 3 ML PEN SC SCH ×2 (08:37→21:29)
--- NOTE | 2019-06-02 09:18 | Orthopedic Progress Note ---
Date of Service June 02, 2019 Assessment & Plan (1) Neurogenic claudication due to lumbar spinal stenosis: At this time we will continue physical therapy monitor his ELIAS output. Ideally be able to discharge home tomorrow. However I am concerned his ELIAS output continues to be significant. Present on Admission?: Yes Subjective Patient's back pain is controlled leg symptoms improved. Physical Exam Physical Exam: Patient is in the chair at the bedside. Is good strength testing. Appears comfortable. Results & Data Vital Signs (Past 12 Hours) Vital Signs Temp Pulse Pulse Pulse Resp BP Pulse Ox 06/02/19 07:37 36.8 C 71 14 130/60 94 06/01/19 23:05 37.3 C 88 16 138/70 95 06/01/19 21:31 90 124/77
[2019-06-02] MEDS ORDERED: INSULIN GLARGINE SOLOSTAR 100 UNITS/ML 3 ML PEN SC ONE (10:30)
--- NOTE | 2019-06-02 12:50 | Hospitalist Progress Note ---
Date of Service June 02, 2019 Assessment & Plan (1) Neurogenic claudication due to lumbar spinal stenosis: - S/p L2-L5 decompression/fusion with Dr. Mariano on 05/31, POD#2. - Pain control per primary team; continue Gabapentin 600 mg qhs prescribed. - PT/OT for discharge planning. - Monitor H/H daily - has been stable. (2) Diabetes mellitus, type 2: - Most recent A1C was 8.5. - Pharmacy for glycemic management. (3) Hyperlipidemia: - Continue statin as prescribed. (4) Hypertension: - BP was low on 06/01, now improved. - Continue Metoprolol 50 mg qhs; resumed home Valsartan & Amlodipine. (5) Thrombocytopenia: - Plt count trending down, was 121 this morning. - Continue to monitor daily -- does have increased ELIAS drain output. (6) Sleep apnea: - Continue home CPAP qhs. (7) Hypokalemia: - Replace prn. (8) DVT prophylaxis: - Per ortho. Dispo: Med/surg; medically stable, will sign off. Please call with any questions. Subjective Pt. is doing well overall. Is passing gas, no BM yet. Has had increased bleeding from drain site, no improvement over last day. Will monitor H/H closely. Plan for discharge potentially on 06/03/19. Review of Systems Review of Systems: All systems reviewed & are unremarkable except as noted in HPI & below Constitutional: no fever, no chills, no fatigue and no weakness Respiratory: no cough, no dyspnea, no dyspnea on exertion and no wheezing Cardiovascular: no chest pain, no palpitations and no edema Gastrointestinal: + constipation; no abdominal pain and no nausea Genitourinary: no difficulty urinating Musculoskeletal: + back pain; no joint pain Integumentary: no non-healing lesions Physical Exam Physical Exam: General: Resting comfortably HEENT: NC/AT; PERRLA with EOMI; [place] conjunctiva, MMM. No erythema of posterior pharynx Neck: Supple and nontender Cardiac: RRR Lungs: CTA bilaterally Abdomen: Bowel normoactive X 4; Nontender to palpation Back: ELIAS drain with sanguinous output. Dressing in place. Extremities: Warm. No edema present Neuro: No focal weakness Skin: No rash Results & Data Vital Signs (Past 12 Hours) Vital Signs Temp Pulse Resp BP Pulse Ox 06/02/19 11:51 37.3 C 71 16 124/68 94 06/02/19 07:37 36.8 C 71 14 130/60 94 Laboratory Results 06/02/19 06/02/19 06/02/19 Range/Units 12:00 08:04 05:10 WBC (4.8-10.8) K/uL RBC (4.7-6.1) M/uL Hgb (14.0-18.0) g/dL Hct (42-52) % MCV (80-100) fL MCH (25-34) pg MCHC (32-36) g/dL RDW Std Deviation (36.4-46.3) fL RDW Coeff of Amarilys (11.5-14.5) % Plt Count (130-400) K/uL MPV (7.4-10.4) fL Sodium 138 (136-145) mmol/L Potassium 3.9 (3.5-5.1) mmol/L Chloride 105 (98-107) mmol/L Carbon Dioxide 28 (21-32) mmol/L Anion Gap 5.0 (3-11) BUN 13 (7-18) mg/dl Creatinine 0.80 (0.6-1.4) mg/dl Est Cr Clr Drug Dosing 149.2 ml/min Est GFR ( Amer) 118.2 Est GFR (Non-Af Amer) 102.0 BUN/Creatinine Ratio 16.0 (10-20) Glucose 164 H (70-99) mg/dl POC Glucose 229 H 185 H (70-99) Calcium 7.8 L (8.5-10.1) mg/dl Crossmatch 06/02/19 06/02/19 06/02/19 Range/Units 05:10 03:49 00:05 WBC 9.61 (4.8-10.8) K/uL RBC 3.52 L (4.7-6.1) M/uL Hgb 11.0 L (14.0-18.0) g/dL Hct 31.8 L (42-52) % MCV 90.3 (80-100) fL MCH 31.3 (25-34) pg MCHC 34.6 (32-36) g/dL RDW Std Deviation 40.9 (36.4-46.3) fL RDW Coeff of Amarilys 12.5 (11.5-14.5) % Plt Count 121 L (130-400) K/uL MPV 9.6 (7.4-10.4) fL Sodium (136-145) mmol/L Potassium (3.5-5.1) mmol/L Chloride (98-107) mmol/L Carbon Dioxide (21-32) mmol/L Anion Gap (3-11) BUN (7-18) mg/dl Creatinine (0.6-1.4) mg/dl Est Cr Clr Drug Dosing ml/min Est GFR ( Amer) Est GFR (Non-Af Amer) BUN/Creatinine Ratio (10-20) Glucose (70-99) mg/dl POC Glucose 181 H 235 H (70-99) Calcium (8.5-10.1) mg/dl Crossmatch 06/01/19 06/01/19 05/31/19 Range/Units 20:54 17:22 06:25 WBC (4.8-10.8) K/uL RBC (4.7-6.1) M/uL Hgb (14.0-18.0) g/dL Hct (42-52) % MCV (80-100) fL MCH (25-34) pg MCHC (32-36) g/dL RDW Std Deviation (36.4-46.3) fL RDW Coeff of Amarilys (11.5-14.5) % Plt Count (130-400) K/uL MPV (7.4-10.4) fL Sodium (136-145) mmol/L Potassium (3.5-5.1) mmol/L Chloride (98-107) mmol/L Carbon Dioxide (21-32) mmol/L Anion Gap (3-11) BUN (7-18) mg/dl Creatinine (0.6-1.4) mg/dl Est Cr Clr Drug Dosing ml/min Est GFR ( Amer) Est GFR (Non-Af Amer) BUN/Creatinine Ratio (10-20) Glucose (70-99) mg/dl POC Glucose 248 H 252 H (70-99) Calcium (8.5-10.1) mg/dl Crossmatch See Detail PG Care Time/CCT Total # of Minutes Spent Total Time Spent with Patient: Total time spent is greater than 50% in coordination of care (as documented) at patient's floor/unit and/or counseling patient:
--- NOTE | 2019-06-02 16:23 | Pharmacy Report ---
Pharmacy Glycemic Short Note 2 - Date of Service June 02, 2019 - Glycemic Short BSG Results (Last 24 hours): 06/01/19 06/01/19 06/02/19 17:22 20:54 00:05 Glucose POC Glucose 252 H 248 H 235 H 06/02/19 06/02/19 06/02/19 03:49 05:10 08:04 Glucose 164 H POC Glucose 181 H 185 H 06/02/19 12:00 Glucose POC Glucose 229 H OUTPATIENT ANTIDIABETIC REGIMEN: * Lantus 28 units BID * Victoza 1.5 mg daily * Novolog sliding scale ASSESSMENT: * Patient received total of 129 units of insulin yesterday; 61 units of this was basal. * Fasting BSG was high at 164 today but better than yesterday. Lantus was slightly increased by 10 units split BID. (Patient had received 10 units of Novolog overnight last night.) * Lunch BSG continued to be above 200, therefore this was tightened further. * Patient received home dose of Victoza yesterday and this was continued again today. PLAN FOR INPATIENT GLYCEMIC CONTROL: * Continue Victoza 1.8 mg SQ daily * Basal insulin: increased * Lantus 33 units SQ BID * Bolus insulin: tightened * NovoLog per scale ACHS or Q6hrs while NPO * Goal Range: Low 110 mg/dL - High 140 mg/dL * Correction Factor: 10 mg/dL/unit * Nutritional / Prandial insulin per carb ratio of 1 unit per 4 grams CHO consumed PLAN FOR DISCHARGE: * HbA1c = 8.5% on 05/17/19. * Goal A1c for this patient given his age and co-morbidities would be less than 7% * Recommend continue home Victoza but with slight increase in home Lantus dosing and possibly adjustment in Novolog sliding scale with close follow up by outpatient provider.
[2019-06-02] MEDS: AMLODIPINE BESYLATE 5 MG TAB PO SCH (20:53)
[2019-06-02] MEDS: VALSARTAN 80 MG TAB PO SCH (20:53)
[2019-06-02] MEDS: MAGNESIUM OXIDE 400 MG TAB PO SCH (20:53)
[2019-06-02] MEDS: GABAPENTIN 600 MG TAB PO SCH (20:53)
[2019-06-02] MEDS: CHOLECALCIFEROL 1,000 UNITS 25 MCG TAB PO SCH (20:53)
[2019-06-02] MEDS: ROSUVASTATIN CALCIUM 20 MG TAB PO SCH (20:53)
[2019-06-02] MEDS: METOPROLOL SUCC 50MG EXT REL TAB PO SCH (20:53)
[2019-06-02] MEDS: DOCUSATE SODIUM/SENNA 50/8.6MG TAB PO SCH (20:54)
[2019-06-03] MEDS: INSULIN ASPART 100 UNITS/ML 3 ML PEN SC SCH ×4 (00:10→13:28)
[2019-06-03] MEDS: POLYETHYLENE (MIRALAX) 17 GM PACK PO SCH (00:16)
[2019-06-03 06:05] LABS: Hematocrit (blood only) 32.7 % (42-52); Hemoglobin 11.4 g/dL (14.0-18.0); Mean Corpuscular Hemoglobin 31.4 pg (25-34); Mean Corpuscular Hgb Conc 34.9 g/dL (32-36); Mean Corpuscular Volume 90.1 fL (80-100); Mean Platelet Volume 9.1 fL (7.4-10.4); Platelet Count 122 K/uL (130-400); RDW Coefficient of Variation 12.3 % (11.5-14.5); Red Blood Count 3.63 M/uL (4.7-6.1); White Blood Count 7.69 K/uL (4.8-10.8)
[2019-06-03] MEDS: OXYCODONE HCL IR 5 MG TAB (IMMEDIATE RELEASE) PO PRN ×3 (07:40→16:34)
[2019-06-03] MEDS: INSULIN GLARGINE SOLOSTAR 100 UNITS/ML 3 ML PEN SC SCH (07:41)
[2019-06-03] MEDS: VICTOZA 18 MG/3 ML SC SCH (07:42)
--- NOTE | 2019-06-03 15:16 | Discharge Summary ---
Date of Service June 03, 2019 Admission HPI Per Admitting Provider This is a 53-year-old male presents with chronic persistent back and leg pain after failing extensive course of nonoperative care is here for surgical intervention. Principal Diagnosis Lumbar spinal stenosis with neurogenic claudication Discharge Data Allergies Allergy/AdvReac Type Severity Reaction Status Date / Time lisinopril AdvReac Mild Cough Verified 05/31/19 06:29 Consultations 05/31/19 12:10 Consult Case Management - Discharge Planning Routine 05/31/19 12:21 Consult Hospitalist Routine Procedures Performed Operation Date: 05/31/19 07:45 Actual Procedures p L2-L5 Decompression and Fusion with Spinal Cord Monitoring, Application of Bone Morphogenetic Protein and Allograft, Insertion of interbody at L3-L4, L4-L5 - Andrew Mariano DO Ordered Studies 05/31/19 07:00 FL fluoroscopy <1hr Routine FL lumbar spine 2-3V Routine Hospital Course (1) Neurogenic claudication due to lumbar spinal stenosis: Patient underwent multilevel lumbar decompression fusion tolerated this well was taken to the orthopedic for possibly. Postop day 1 leg symptoms were improved he tolerated physical therapy progressed to postop day #2. ELIAS drain was still significant. Postop day #3 he was still had significant ELIAS output at 60 cc over the last shift. He is neurologically intact. Comfortable otherwise. Subsequently was discharged home with home health for ELIAS management. Discharge orders instructions from the chart for further review. Total Time Total Time Spent Total Time Spent (In Minutes): 20 minutes Discharge Plan Discharge Items Patient Disposition: Home - Home Health Services Reason For Visit: LUMBAR SPINAL STENOSIS W/NEUROGENIC CLAUDICATION Discharge Diagnosis: Lumbar spinal stenosis with neurogenic claudication Activity: As commented below Non-emergency contact: Primary Care Provider Call non-emergency contact if: you have any medication questions Follow-up/Referrals: Ash Perez D.O. [Primary Care Provider] - Diet: Regular Addtl Attending Provider Instructions: ACTIVITY RECOMMENDATIONS: SELF CARE INSTRUCTIONS AFTER THORACIC/LUMBAR FUSIONS 1. You may walk to your tolerance. It is good exercise for your legs and back. Expect some back and intermittent leg aches and pains. 2. You may perform "counter-top" level activities (make a sandwich, andrew with a project, etc.). 3. No bending or lifting of more than 10 pounds or back twisting of any nature (roll like a log when turning in bed). 4. You may ride in a car for 20-30 minutes at a time. No driving until after your first visit with your doctor. 5. Frequent changes of position and restricting sitting to 30 minutes at a time will help limit the amount of back spasms and stiffness you may experience. 6. You may discontinue the use of ambulatory aids (cane, crutches, etc.) once your strength and confidence allow. 7. You may credit interviewer the shower and let water strike your incision when you arrive home at least once daily. Do not take a tub bath, sit in a hot tub or go into a swimming pool until after your first recheck in the office. SPECIAL CARE INSTRUCTIONS: VERY IMPORTANT TO READ AND REVIEW A. Your surgical incision has been closed with a cosmetic suture under the skin that will dissolve in about 6 weeks. In 14 days, you can use a pair of clean scissors and cut the suture that is left outside of the skin at the ends of your incision. 1. The small skin tapes can be removed 7 days after surgery if they have not fallen off by that point. 2. You may keep the wound open to air as much as possible to promote healing after post-op day number 5 unless told otherwise by your doctor. 3. If you think the wound looks like it is becoming infected (redness or worsening drainage) and/or you are experiencing fever, chill or worsening back pain and muscle spasms, contact the office so that we may evaluate you as soon as possible. B. Complications are uncommon, but please contact us if you have any signs or symptoms of: 1. wound infection (fever higher than 102.5 degrees F, redness, separation of wound, drainage, or increasing pain from the incision) 2. blood clots in legs (pain, swelling, redness and warmth in legs) 3. urinary tract infection (fever higher than 102.5 degrees F, burning upon urination or increased frequency of urination) 4. nerve problems (inability to walk on your toes or heels, numbness, loss of bowel or bladder control) 5. any other symptoms that concern you C. Please call the office at if you have any concerns or questions about your operation or recovery. D. No smoking! Smoking drastically decreases the chance of a solid fusion. E. Do not take any anti-inflammatory medications (Indocin, Advil, Motrin, Aspirin, Naprosyn, etc.) as these may inhibit the chance of a solid fusion. Tylenol is okay to take for pain. MANAGING PAIN AFTER SPINAL SURGERY 1. Narcotic medication is intended for short-term use and will be provided for surgical pain. Surgical pain usually lasts for a period of 4-6 weeks. Narcotic medication includes Percocet, Vicodin, Darvocet, Tylenol #3 or Lortab. 2. Longer-term pain is more appropriately treated with non-narcotic medication such as Tylenol ES. 3. Muscle spasm is not appropriately treated with narcotics. Muscle relaxers such as Soma, Flexeril or Skelaxin can be used along with Tylenol ES. 4. Remember that we all live with some "aches and pains". This is not unusual or uncommon after an injury or as we get older. a. Back pain is expected and may include muscle spasms for 4 to 6 weeks after surgery. The pain should gradually improve. If the pain worsens for no apparent reason, please contact the office. b. Intermittent leg pain may also be experienced and should not be concerned about unless it worsens for no apparent reason. If so, please contact the office. 5. We will provide appropriate medication within the normal guidelines of their prescribed use. We will also be very cautious and aware of potential abuse and extended duration of patients' medication needs. a. Pain medications are for your comfort and to assist with sleep and rest so that the tissue can heal. They are not provided in order to return to normal activity and should not be used through the day. To do so or worsening pain at night can result from ongoing tissue damage and development of tolerance to the prescribed medicine. 6. Please allow 2-3 days to process refills. Prescriptions will not be mailed but must be picked up at the office. FOLLOW UP VISIT: Keep your scheduled follow-up appointment. Any questions, please call the office at . Pending Studies at Discharge: No Stand-Alone Forms: My ReturnHauler, Smoking Cessation Medications and DC Order Prescriptions: New tramadol 50 mg tablet 50 mg PO Q6H PRN (Reason: pain, moderate) Qty: 30 RF: 0 oxycodone 5 mg tablet 5 mg PO Q6H PRN (Reason: pain, severe) Qty: 30 RF: 0 Continued metformin 500 mg Tablet 1,000 mg PO HS RF: 0 metoprolol succinate 50 mg Tablet Extended Release 24 Hr 50 mg PO HS RF: 0 valsartan [Diovan] 80 mg Tablet 80 mg PO HS RF: 0 amlodipine [Norvasc] 5 mg Tablet 5 mg PO HS RF: 0 gabapentin [Neurontin] 300 mg Capsule 600 mg PO HS RF: 0 cholecalciferol (vitamin D3) [Vitamin D3] 1,000 unit Capsule 2,000 unit PO HS RF: 0 Novolog Flexpen U-100 Insulin 100 unit/mL (3 mL) Insulin Pen 1 unit SUBCUT AC RF: 0 rosuvastatin [Crestor] 20 mg Tablet 20 mg PO HS RF: 0 Lantus Solostar U-100 Insulin 100 unit/mL (3 mL) Insulin Pen 28 unit SUBCUT BID RF: 0 potassium gluconate 595 mg (99 mg) Tablet 595 mg PO PM RF: 0 Victoza 2-Gurvinder 0.6 mg/0.1 mL (18 mg/3 mL) Pen Injector 1.8 mg SUBCUT QAM RF: 0 magnesium oxide 400 mg magnesium Tablet 400 mg PO HS RF: 0 Discharge Orders: Discharge Order (Routine); Ordered 06/03/19 Ordered By: Andrew Jay/Other Patient Handouts: Diabetes Usp Complications, Diabetes Resources, Diabetes Healthy Meals, Diabetes Carbs, Diabetes Exercise Benefits, Diabetes Activity Tips, Diabetes Living Life, A1C Admission Data Admit Date/Time: 05/31/19 10:49 Attending Provider: Andrew Mariano Admit Provider: Andrew Mariano Primary Care Provider: Ash Perez Other Providers: Taurus Barbosa
== END 2019-06-03 17:12 | disposition home health service (06) | DRG 455 ==
LOC: ASU 06:07 → 3E 10:49